=== PATIENT | male | born 1945 | race Caucasian/White ===

== ENCOUNTER → 2018-02-04 | Outpatient (CLI) | payer MEDICARE, OTHER ==
[~2018-02-04] MED LIST: ASPI81CH PO; ATOR40TA PO; CEPH500 PO; INDO50 PO; Norco 10-325 T1 EACH PO; Norco 5-325 Ta1 EACH PO; Norco 7.5-3251 EACH PO; Plavix75 MG PO
== END ==
LOC: LAB SHORT 09:58 → PLD 09:58
DX: D22.62 Melanocytic nevi of left upper limb, including shoulder (principal)
CPT/HCPCS: 88305

== ENCOUNTER → 2019-02-10 | Outpatient (CLI) | payer MEDICARE, OTHER ==
[~2019-02-10] MED LIST changes: +ASCO500 PO; +ERGO400 PO; +HYDR1TAB94; +Norco 10-325 T1 EACH; +UBID10 PO; +VITAMIN B125000 MCG PO
== END | disposition home or self-care (01) ==
LOC: LAB SHORT 13:42 → PLD 13:42
DX: D18.01 Hemangioma of skin and subcutaneous tissue (principal)
CPT/HCPCS: 88305

== ENCOUNTER 2019-05-17 08:26 | Emergency (ER) | payer MEDICARE, OTHER ==
[~2019-05-17] VITALS: Ht 172.7 cm; Wt 79.4 kg
[2019-05-17] MEDS ORDERED: CYCL10 PO (11:52)
[2019-06-09] MEDS ORDERED: Aspirin EC81 MG PO (14:21)
[2019-06-09] MEDS ORDERED: OXYC5 PO (14:41)
[2019-06-09] MEDS ORDERED: GABA300 PO (14:41)
[2019-06-09] MEDS ORDERED: CEPH500 PO (14:44)
[2019-06-09] MEDS ORDERED: DIAZ5 PO (14:45)
[2019-06-10] MEDS ORDERED: LIDOCAINE PAIN1 EACH TOP (16:37)
[2019-06-10] MEDS ORDERED: METO25 PO (16:38)
== END 2019-05-17 12:19 | disposition home or self-care (01) ==
LOC: ER 08:26
DX: M54.16 Radiculopathy, lumbar region (principal); Z87.891 Personal history of nicotine dependence; Z79.899 Other long term (current) drug therapy; Z79.82 Long term (current) use of aspirin; Z79.891 Long term (current) use of opiate analgesic
CPT/HCPCS: 96374; 96375; 96376; 99283-25; J1100; J1170; J1885; J2060; J2405

== ENCOUNTER 2019-06-03 17:35 | Emergency (ER) | payer MEDICARE, OTHER ==
[~2019-06-03] VITALS: Ht 172.7 cm; Wt 77.1 kg
[~2019-06-03 17:35] MED LIST changes: +CYCL10 PO
[2019-06-03] MEDS ORDERED: OXYCODONE HCL E10 MG PO (18:13)
[2019-06-03] MEDS ORDERED: GABA300 PO (18:13)
[2019-06-03] MEDS ORDERED: Valium5 MG PO (18:13)
[2019-06-03] MEDS ORDERED: Keflex500 MG PO ×2 (19:35→19:36)
[2019-06-09] MEDS ORDERED: Aspirin EC81 MG PO (14:21)
[2019-06-09] MEDS ORDERED: GABA300 PO (14:41)
[2019-06-09] MEDS ORDERED: OXYC5 PO (14:41)
[2019-06-09] MEDS ORDERED: CEPH500 PO (14:44)
[2019-06-09] MEDS ORDERED: DIAZ5 PO (14:45)
[2019-06-10] MEDS ORDERED: LIDOCAINE PAIN1 EACH TOP (16:37)
[2019-06-10] MEDS ORDERED: METO25 PO (16:38)
== END 2019-06-03 19:35 | disposition home or self-care (01) ==
LOC: ER 17:35
DX: L03.115 Cellulitis of right lower limb (principal); I25.10 Atherosclerotic heart disease of native coronary artery without angina pectoris; M79.661 Pain in right lower leg; Z87.891 Personal history of nicotine dependence; Z79.899 Other long term (current) drug therapy
CPT/HCPCS: 93971; 99283-25

== ENCOUNTER → 2020-09-21 | Outpatient (CLI) | payer MEDICARE, OTHER ==
[~2020-09-21] MED LIST changes: +Aspirin EC81 MG PO; +DIAZ5 PO; +GABA300 PO; +Keflex500 MG PO; +LIDOCAINE PAIN1 EACH TOP; +METO25 PO; +OXYC5 PO; +OXYCODONE HCL E10 MG PO; +Valium5 MG PO
== END | disposition home or self-care (01) ==
LOC: LAB SHORT 09:44
DX: L08.9 Local infection of the skin and subcutaneous tissue, unspecified (principal)
CPT/HCPCS: 87070; 87075; 87205

== ENCOUNTER → 2020-12-19 | Outpatient (CLI) | payer MEDICARE, OTHER | END | disposition home or self-care (01) | LOC: LAB SHORT 10:53 → PLD 10:53 | DX: D48.5 Neoplasm of uncertain behavior of skin (principal) | CPT/HCPCS: 88305 ==

== ENCOUNTER 2022-10-30 07:03 | Day surgery (SDC) | payer MEDICARE, OTHER ==
[~2022-10-30] VITALS: Ht 175.3 cm; Wt 81.2 kg
[2022-10-30] MEDS ORDERED: Bisoprolol Fumar5 MG PO (07:14)
[2022-10-30] MEDS ORDERED: LOSA25 PO (07:14)
[2022-10-30] MEDS ORDERED: XARELTO20 MG PO (07:15)
[2022-10-30] MEDS ORDERED: Norco 5-325 Ta1 EACH PO (07:16)
== END 2022-10-30 08:47 | disposition home or self-care (01) ==
LOC: ORSCSDS 07:03
PROVIDERS: Student in an Organized Health Care Education/Training Program
PROC: 08RJ3JZ Replacement of Right Lens with Synthetic Substitute, Percutaneous Approach (ICD-10-PCS; principal; 2022-10-30 08:15)
DX: H25.11 Age-related nuclear cataract, right eye (principal); I10 Essential (primary) hypertension; I25.10 Atherosclerotic heart disease of native coronary artery without angina pectoris; K21.9 Gastro-esophageal reflux disease without esophagitis; Z79.899 Other long term (current) drug therapy; Z79.01 Long term (current) use of anticoagulants
CPT/HCPCS: J2001; J2250; J3010; J7040; V2632

== ENCOUNTER 2023-09-10 06:21 | Day surgery (SDC) | payer MEDICARE, OTHER ==
[~2023-09-10] VITALS: Ht 172.7 cm; Wt 79.8 kg
[2023-09-10] VITALS (17 sets, daily range): BP systolic 89–125; BP diastolic 46–87
[~2023-09-10 06:21] MED LIST changes: +ATOR20 PO; +Bisoprolol Fumar5 MG PO; +LOSA25 PO; +XARELTO20 MG PO
--- NOTE | 2023-09-10 06:58 | NUR ---
Ambulatory in Day Surgery History, Chart, Medications and Allergies reviewed before start of procedure. Pre-Op teaching done. Pt verbalizes understanding. Patient States Post-Procedure ride home has been arranged.
--- NOTE | 2023-09-10 08:15 | NUR ---
09/10/23 0815 Nicole Nicole SPINAL NERVE BLOCK COMPLETED UPON ENTRY TO OR BY DR. BOURGEOIS. PT TOLERATED WELL.
--- NOTE | 2023-09-10 11:05 | NUR ---
PT ARRIVED TO THE ROOM AT APPROXIMATELY 1015. PT ALERT ORIENTED AND PLEASANT. PT UNABLE TO MOVE BLE R/T SPINAL ANESTHESIA. SPINAL SITE WNL. AT BEDSIDE FOR SUPPORT. CALL LIGHT WITHIN REACH. PROVIDED WITH FOOD AND FLUIDS. PAIN MEDICATION GIVEN FOR 5/10 R HIP PAIN. R HIP DRESSING C/D/I.
[2023-09-10] MEDS ORDERED: Percocet 5-3251 EACH PO (16:20)
[2023-09-10] MEDS ORDERED: ASPI81CH PO (16:20)
--- NOTE | 2023-09-10 18:16 | NUR ---
DISCHARGE PT DISCHARGED HOME AT APPROXIMATELY 1650. PAIN MANAGED AT TIME OF DISCHARGE. PT TOLERATED PO, WAS ABLE TO VOID AND CLEARED THERAPY. PT PROVIDED WITH CLEAN DRESSINGS. KEN RINALDI PROVIDED DISCHARGE INSTRUCTIONS. VSS AT TIME OF DISCHARGE. PT ASSISTED OUT IN W/C.
== END 2023-09-10 17:00 | disposition home or self-care (01) ==
LOC: ORSCMMR 06:21 → ORD 07:30 → ORSCMMR 07:30 → ORD 08:15 → ORSCMMR 08:15 → SURS 10:25 → ORSCMMR 17:00
PROVIDERS: Orthopaedic Surgery
PROC: 0SR90JZ Replacement of Right Hip Joint with Synthetic Substitute, Open Approach (ICD-10-PCS; principal; 2023-09-10 07:30)
DX: M16.11 Unilateral primary osteoarthritis, right hip (principal); I10 Essential (primary) hypertension; E78.5 Hyperlipidemia, unspecified; Z86.73 Personal history of transient ischemic attack (TIA), and cerebral infarction without residual deficits; Z79.01 Long term (current) use of anticoagulants; Z79.899 Other long term (current) drug therapy
CPT/HCPCS: 72170; 97112; 97116; 97161; 97530; A9270; C1776; J0171; J0690; J0735; J1885; J2250; J2371; J2704; J2795; J7120